=== PATIENT | female | born 1990 | race Caucasian/White ===

== ENCOUNTER 2018-04-13 08:57 | Outpatient (CLI) | payer OTHER | END 2018-04-13 10:01 | disposition home or self-care (01) | LOC: OBT 08:57 → L-D 08:57 → OBT 10:01 | DX: O24.410 Gestational diabetes mellitus in pregnancy, diet controlled (principal); Z3A.36 36 weeks gestation of pregnancy | CPT/HCPCS: 76818 ==

== ENCOUNTER 2018-04-30 10:48 | Outpatient (CLI) | payer OTHER ==
[2018-04-30 12:15] LABS: ADD UMIC YES; UR ASCORBIC ACID NEGATIVE (NEGATIVE); UR BILIRUBIN (Dip) NEGATIVE (NEGATIVE); UR BLOOD (Dip) 1+ mg/dL (NEGATIVE); UR CLARITY SLIGHTLY CLOUDY (CLEAR); UR COLOR YELLOW (YELLOW); UR GLUCOSE (Dip) NEGATIVE (NEGATIVE); UR KETONES (Dip) 1+ mg/dL (NEGATIVE); UR LEUKOCYTE ESTERASE (Dip) 3+ Leu/ul (NEGATIVE); UR NITRITE (Dip) NEGATIVE (NEGATIVE); UR RBC 2 /HPF (0-5); UR SPECIFIC GRAVITY (Dip) 1.011 (1.003-1.030); UR SQUAMOUS EPITHELIAL CELL FEW /HPF (FEW); UR TOTAL PROTEIN (Dip) NEGATIVE (NEGATIVE); UR UROBILINOGEN (Dip) NEGATIVE (NEGATIVE); UR WBC 4 /HPF (0-5)
== END 2018-04-30 13:00 | disposition home or self-care (01) ==
LOC: OBT 10:48 → L-D 10:48 → OBT 13:00
DX: O24.419 Gestational diabetes mellitus in pregnancy, unspecified control (principal); O26.893 Other specified pregnancy related conditions, third trimester; R10.2 Pelvic and perineal pain; Z3A.38 38 weeks gestation of pregnancy
CPT/HCPCS: 76815; 81001; 87086

== ENCOUNTER 2018-05-01 11:10 | Outpatient (CLI) | payer OTHER ==
[2018-05-01 12:27] LABS: ADD MAN DIFF? NO
[2018-05-01 12:37] LABS: ADD UMIC YES; UR ASCORBIC ACID NEGATIVE (NEGATIVE); UR BACTERIA FEW /HPF (NONE SEEN); UR BILIRUBIN (Dip) NEGATIVE (NEGATIVE); UR BLOOD (Dip) NEGATIVE (NEGATIVE); UR CLARITY SLIGHTLY CLOUDY (CLEAR); UR COLOR YELLOW (YELLOW); UR GLUCOSE (Dip) NEGATIVE (NEGATIVE); UR KETONES (Dip) NEGATIVE (NEGATIVE); UR LEUKOCYTE ESTERASE (Dip) 2+ Leu/ul (NEGATIVE); UR NITRITE (Dip) NEGATIVE (NEGATIVE); UR RBC 1 /HPF (0-5); UR SPECIFIC GRAVITY (Dip) 1.014 (1.003-1.030); UR SQUAMOUS EPITHELIAL CELL MODERATE /HPF (FEW); UR TOTAL PROTEIN (Dip) NEGATIVE (NEGATIVE); UR UROBILINOGEN (Dip) 2+ mg/dL (NEGATIVE); UR WBC 11 /HPF (0-5)
[2018-05-01 12:44] LABS: BASOPHILS % 0.2 % (0.0-2.0); EOSINOPHILS % 0.3 % (0.0-7.0); HEMATOCRIT 32.7 % (37.0-47.0); HEMOGLOBIN 10.7 g/dl (12.0-16.0); LYMPHOCYTES # 0.9 10^3/ul (0.8-2.9); LYMPHOCYTES % 14.8 % (15.0-51.0); MEAN CORPUSCULAR HEMOGLOBIN 29.6 pg (29.0-33.0); MEAN CORPUSCULAR HGB CONC 32.7 g/dl (32.0-37.0); MEAN CORPUSCULAR VOLUME 90.3 fl (82.0-101.0); MONOCYTE # 0.4 10^3/ul (0.3-0.9); NEUTROPHIL # 4.5 10^3/ul (1.6-7.5); NEUTROPHILS % 76.8 % (39.0-77.0); PLATELET COUNT 140 10^3/UL (140-415); RED BLOOD COUNT 3.62 10^6/ul (4.20-5.40); RED CELL DISTRIBUTION WIDTH 13.2 % (11.5-14.5)
[2018-05-01 12:44] LABS: WHITE BLOOD COUNT 5.9 10^3/ul (4.8-10.8)
[2018-05-01 12:56] LABS: ALANINE AMINOTRANSFERASE 8 IU/L (13-69); ALBUMIN 3.2 g/dl (3.3-4.9); ALKALINE PHOSPHATASE 258 IU/L (42-121); ANION GAP 9 (5-13); ASPARTATE AMINO TRANSFERASE 15 IU/L (15-46); BILIRUBIN,INDIRECT 0.3 mg/dl (0-1.1); BILIRUBIN,TOTAL 0.3 mg/dl (0.2-1.3); BLOOD UREA NITROGEN 4 mg/dl (7-20); CALCIUM 8.2 mg/dl (8.4-10.2); CARBON DIOXIDE 21 mmol/L (21-31); CHLORIDE 109 mmol/L (97-110); CREATININE 0.41 mg/dl (0.44-1.00); Estimated GFR > 60 mL/min (>60); GLUCOSE 93 mg/dl (70-220); POTASSIUM 3.2 mmol/L (3.5-5.1); SODIUM 139 mmol/L (135-144); TOTAL PROTEIN 6.1 g/dl (6.1-8.1); URIC ACID 3.3 mg/dl (3.1-7.9)
[2018-05-01 12:57] LABS: INR 0.88; PT RATIO 0.9
== END 2018-05-01 15:35 | disposition home or self-care (01) ==
LOC: OBT 11:10 → L-D 11:10 → OBT 15:35
DX: O13.3 Gestational [pregnancy-induced] hypertension without significant proteinuria, third trimester (principal); O24.419 Gestational diabetes mellitus in pregnancy, unspecified control; Z3A.38 38 weeks gestation of pregnancy
CPT/HCPCS: 76818; 80053; 81001; 82962; 84560; 85025; 85610; 85730

== ENCOUNTER 2018-05-04 08:43 | Inpatient (IN) | payer OTHER ==
[2018-05-04 09:12] LABS: COLLECTION PERIOD 24 hrs
[2018-05-04 09:27] LABS: COLLECTION PERIOD 24 hrs; VOLUME 2850 ml/24hrs; VOLUME 2850 mls
[2018-05-04 09:36] LABS: ADD MAN DIFF? NO
[2018-05-04 09:40] LABS: CREATININE,URINE RANDOM 61.44 mg/dl (20-320)
[2018-05-04 09:41] LABS: BASOPHILS % 0.3 % (0.0-2.0); EOSINOPHILS % 0.4 % (0.0-7.0); HEMATOCRIT 32.7 % (37.0-47.0); HEMOGLOBIN 10.9 g/dl (12.0-16.0); LYMPHOCYTES # 1.2 10^3/ul (0.8-2.9); LYMPHOCYTES % 17.1 % (15.0-51.0); MEAN CORPUSCULAR HEMOGLOBIN 29.6 pg (29.0-33.0); MEAN CORPUSCULAR HGB CONC 33.3 g/dl (32.0-37.0); MEAN CORPUSCULAR VOLUME 88.9 fl (82.0-101.0); MEAN PLATELET VOLUME 11.9 fl (7.4-10.4); MONOCYTE # 0.4 10^3/ul (0.3-0.9); MONOCYTES % 6.3 % (0.0-11.0); NEUTROPHIL # 5.3 10^3/ul (1.6-7.5); NEUTROPHILS % 75.3 % (39.0-77.0); PLATELET COUNT 140 10^3/UL (140-415); RED BLOOD COUNT 3.68 10^6/ul (4.20-5.40); RED CELL DISTRIBUTION WIDTH 13.2 % (11.5-14.5)
[2018-05-04 10:15] LABS: ALANINE AMINOTRANSFERASE 6 IU/L (13-69); ALBUMIN 3.2 g/dl (3.3-4.9); ALBUMIN/GLOBULIN RATIO 1.06; ALKALINE PHOSPHATASE 249 IU/L (42-121); ANION GAP 10 (5-13); ASPARTATE AMINO TRANSFERASE 15 IU/L (15-46); BILIRUBIN,INDIRECT 0.2 mg/dl (0-1.1); BILIRUBIN,TOTAL 0.2 mg/dl (0.2-1.3); BLOOD UREA NITROGEN 4 mg/dl (7-20); CALCIUM 8.7 mg/dl (8.4-10.2); CARBON DIOXIDE 22 mmol/L (21-31); CHLORIDE 107 mmol/L (97-110); CREATININE 0.47 mg/dl (0.44-1.00); Estimated GFR > 60 mL/min (>60); GLUCOSE 109 mg/dl (70-220); POTASSIUM 3.1 mmol/L (3.5-5.1); SODIUM 139 mmol/L (135-144); TOTAL PROTEIN 6.2 g/dl (6.1-8.1); URIC ACID 4.3 mg/dl (3.1-7.9)
[2018-05-04 10:17] LABS: CREATININE CLEARANCE 258.7 mls/min (84.0-162.0); SCRET 0.47 mg/dl (0.44-1.00)
[2018-05-04 14:15] LABS: ADD MAN DIFF? NO
[2018-05-04 14:18] LABS: WHITE BLOOD COUNT 8.3 10^3/ul (4.8-10.8)
[2018-05-04 14:18] LABS: BASOPHILS % 0.2 % (0.0-2.0); EOSINOPHILS % 0.4 % (0.0-7.0); HEMATOCRIT 34.6 % (37.0-47.0); HEMOGLOBIN 11.7 g/dl (12.0-16.0); LYMPHOCYTES # 1.4 10^3/ul (0.8-2.9); LYMPHOCYTES % 16.2 % (15.0-51.0); MEAN CORPUSCULAR HEMOGLOBIN 29.9 pg (29.0-33.0); MEAN CORPUSCULAR HGB CONC 33.8 g/dl (32.0-37.0); MEAN CORPUSCULAR VOLUME 88.5 fl (82.0-101.0); MEAN PLATELET VOLUME 11.8 fl (7.4-10.4); MONOCYTE # 0.5 10^3/ul (0.3-0.9); MONOCYTES % 6.5 % (0.0-11.0); NEUTROPHIL # 6.4 10^3/ul (1.6-7.5); NEUTROPHILS % 76.2 % (39.0-77.0); PLATELET COUNT 132 10^3/UL (140-415); RED BLOOD COUNT 3.91 10^6/ul (4.20-5.40); RED CELL DISTRIBUTION WIDTH 13.2 % (11.5-14.5)
[2018-05-04 14:26] LABS: INR 0.86; PROTIME 11.8 Sec (11.9-14.9); PT RATIO 0.9
[2018-05-04 14:27] LABS: PARTIAL THROMBOPLASTIN TIME 24.5 Sec (23.0-35.0)
[2018-05-04] MEDS ORDERED: OXYTOCIN 30 UNITS/LR 500 ML IV (14:30)
[2018-05-04] MEDS ORDERED: METHYLERGONOVINE 0.2 MG INJ IM (14:30)
[2018-05-04] MEDS ORDERED: IBUPROFEN 600 MG TAB PO (14:30)
[2018-05-04] MEDS ORDERED: BUTORPHANOL 2 MG INJ IV (14:30)
[2018-05-04] MEDS ORDERED: LIDOCAINE 1% (MPF) 30 ML INJ INJ (14:30)
[2018-05-04] MEDS ORDERED: CARBOPROST 250 MCG INJ IM (14:30)
[2018-05-04] MEDS ORDERED: MISOPROSTOL 200 MCG TAB PR (14:30)
[2018-05-04] MEDS: LACTATED RINGER'S 1,000 ML IV (14:34)
[2018-05-04] MEDS: AMPICILLIN 2 GM/NS (PMX) 100 ML IV (14:35)
[2018-05-04] MEDS: OXYTOCIN 30 UNITS/LR 500 ML IV (14:40)
[2018-05-04 16:14] LABS: RAPID PLASMA REAGIN NONREACTIVE (NR)
[2018-05-04 17:11] LABS: HEPATITIS B SURFACE ANTIGEN NEGATIVE (NEGATIVE)
[2018-05-04] MEDS: AMPICILLIN 1 GM/NS (PMX) 50 ML IV (19:27)
[2018-05-05] MEDS: AMPICILLIN 1 GM/NS (PMX) 50 ML IV ×6 (01:33→22:20)
[2018-05-05] MEDS: LACTATED RINGER'S 1,000 ML IV ×3 (01:33→18:35)
[2018-05-05] MEDS: DEXTROSE 5%-LR 1,000 ML IV (08:03)
[2018-05-05] MEDS: OXYTOCIN 30 UNITS/LR 500 ML IV (15:04)
[2018-05-06] MEDS: AMPICILLIN 1 GM/NS (PMX) 50 ML IV ×7 (02:53→20:30)
[2018-05-06] MEDS: DEXTROSE 5%-LR 1,000 ML IV ×4 (06:40→15:57)
[2018-05-06] MEDS: LACTATED RINGER'S 1,000 ML IV ×4 (06:40→22:08)
[2018-05-06] MEDS ORDERED: KETOROLAC 30 MG INJ IV (11:00)
[2018-05-06] MEDS ORDERED: NALOXONE (0.4 MG/ML) INJ IV (11:00)
[2018-05-06] MEDS ORDERED: HYDROmorphONE 0.5 MG/0.5 ML SYG IV ×2 (11:00)
[2018-05-06] MEDS ORDERED: DIPHENHYDRAMINE 50 MG INJ IV (11:00)
[2018-05-06] MEDS: ONDANSETRON 4 MG INJ IV (15:55)
[2018-05-06] MEDS: OXYTOCIN 30 UNITS/LR 500 ML IV ×3 (17:59→23:25)
[2018-05-06] MEDS: FENTAnyl 2MCG/ML-ROPIV 0.2% 100 ML BAG EPI (17:59)
[2018-05-07] MEDS: OXYTOCIN 30 UNITS/LR 500 ML IV (00:29)
[2018-05-07] MEDS ORDERED: ZOLPIDEM 5 MG TAB PO (00:30)
[2018-05-07] MEDS ORDERED: ONDANSETRON 4 MG INJ IV (00:30)
[2018-05-07] MEDS ORDERED: DIPHENHYDRAMINE 25 MG CAP PO (00:30)
[2018-05-07] MEDS ORDERED: CARBOPROST 250 MCG INJ IM (00:30)
[2018-05-07] MEDS ORDERED: MISOPROSTOL 200 MCG TAB PR (00:30)
[2018-05-07] MEDS ORDERED: OXYTOCIN 30 UNITS/LR 500 ML IV (00:30)
[2018-05-07] MEDS ORDERED: NACL 0.9% 3 ML SYG IV (00:30)
[2018-05-07] MEDS: WITCH HAZEL/GLYCERIN PAD PR (01:30)
[2018-05-07] MEDS: ACETAMINOPHEN 325 MG TAB PO (01:31)
[2018-05-07] MEDS: IBUPROFEN 600 MG TAB PO ×4 (05:37→23:30)
[2018-05-07 07:21] LABS: HEMATOCRIT 30.3 % (37.0-47.0); HEMOGLOBIN 10.3 g/dl (12.0-16.0)
[2018-05-07] MEDS: SENNA/DOCUSATE NA (8.6MG/50MG) TAB PO ×2 (09:10→21:10)
[2018-05-07 12:22] LABS: RHOGAM PROFILE 1 1
[2018-05-07] MEDS: HYDROCODONE/APAP (5/325) TAB PO (15:23)
[2018-05-07] MEDS: LANOLIN HPA 1 PKT TOP (18:06)
[2018-05-08] MEDS: IBUPROFEN 600 MG TAB PO ×3 (05:49→17:14)
[2018-05-08] MEDS: LANOLIN HPA 1 PKT TOP (08:11)
[2018-05-08] MEDS: SENNA/DOCUSATE NA (8.6MG/50MG) TAB PO (08:11)
[2018-05-08] MEDS: BENZOCAINE 20% 56 ML SPRAY TOP (10:49)
[2018-05-08] MEDS: WITCH HAZEL/GLYCERIN PAD PR (10:50)
== END 2018-05-08 18:46 | disposition home or self-care (01) | DRG 807 ==
LOC: OBT 08:43 → PP1 05-07 00:36 → L-D 08:43 → OBT 11:23 → L-D 11:10
PROC: 10E0XZZ Delivery of Products of Conception, External Approach (ICD-10-PCS; principal; 2018-05-06)
PROC: 0KQM0ZZ Repair Perineum Muscle, Open Approach (ICD-10-PCS; 2018-05-06)
DX: O70.0 First degree perineal laceration during delivery (principal); Z37.0 Single live birth; O13.4 Gestational [pregnancy-induced] hypertension without significant proteinuria, complicating childbirth; Z3A.38 38 weeks gestation of pregnancy
CPT/HCPCS: 62319; 76816; 76818; 80053; 82575; 82962; 84156; 84560; 85014; 85018; 85025; 85610; 85730; 86592; 86850; 86870; 86885; 86900; 86901; 87340